=== PATIENT | male | born 1975 | race African-American/Black ===

== ENCOUNTER 2024-03-15 03:51 | Emergency (ER) | payer BC, SELFPAY ==
[2024-03-15] VITALS (21 sets, daily range): BP systolic 149–188; BP diastolic 88–118; PULSE 91–117; RESP 20–22; TEMP 36.9–37.1; O2SAT 91–100; BMI 55.9
--- NOTE | 2024-03-15 04:07 | EKG_ITS ---
[address] [address] Test Date: 2024-03-15 Pat Name: Andrés Capellan Department: Room: Gender: Male [employer] Steam: NOA CRUZ : 1975 Requested By: Order Number: [id number] Reading MD: Harish Leos MD Measurements Intervals [place] Rate: 106 P: 63 RI: 168 QRS: 23 QRSD: 108 T: -46 QT: 358 QTc: 475 Interpretive Statements Sinus tachycardia Incomplete left bundle branch block Left ventricular hypertrophy with repolarization abnormality ( [place] product ) NO PRIOR TRACING Electronically Signed On 03-15-2024 7:42:38 PST by Harish Leos MD
--- NOTE | 2024-03-15 04:08 | DI.RAD.S_ITS ---
PROCEDURE: XR CHEST 1V INDICATIONS: chest pain TECHNIQUE: One view of the chest was acquired. COMPARISON: None. FINDINGS: Surgical changes and devices: None. Lungs and pleura: Mild hazy airspace opacities. Mediastinum: Mediastinal contours appear normal. Heart size is normal. Bones and chest wall: No suspicious bony lesions. Overlying soft tissues appear unremarkable. IMPRESSION: Mild hazy airspace opacities, could represent atelectasis or viral pneumonia. Agree with preliminary report. Dictated by: Rehan May M.D. on 03/15/2024 at 8:31 Approved by: Rehan May M.D. on 03/15/2024 at 8:31
--- NOTE | 2024-03-15 04:09 | ED.SOB ---
HPI - SOB/Dyspnea General Chief Complaint: Shortness of Breath/Dyspnea Stated Complaint: SOB Time Seen by Provider: 03/15/24 03:56 Source: patient Mode of arrival: Ambulatory Limitations: no limitations History of Present Illness HPI Narrative: 48-year-old male with history hypertension and congestive heart failure, working [facility] [employer] away from his home state of [place], had congestive heart failure admission January 2024 in [facility], complains of 2 days duration cough productive of clear sputum, increasing shortness of breath, had not taken his regular medications yesterday nor this morning. Denies sensation fevers chills. Denies chest pain except with coughing. Has swelling to ankles that is about the same. He takes numerous medications for his congestive heart failure and for his blood pressure, but has not taken his medications morning, nor yesterday. Related Data Previous Rx's Medication Instructions Recorded albuterol sulfate 90 mcg/actuation 2 puff inhalation Q6H PRN 03/15/24 aerosol inhaler shortness of breath or wheezing #8.5 grams amoxicillin 875 mg tablet 875 mg PO BID dental infection 10 03/15/24 days #20 tabs doxycycline hyclate 100 mg capsule 100 mg PO BID #20 caps 03/15/24 Allergies Allergy/AdvReac Type Severity Reaction Status Date / Time No Known Drug Allergies Allergy Verified 03/15/24 04:00 Review of Systems Review of Systems Narrative: See HPI Patient History Social History Smoking Status: Never smoker Smoking Status: Never smoker Exam Narrative Exam Narrative: GENERAL: Well-developed patient, in mild distress. HEAD: Atraumatic. Normocephalic. EYES: Pupils equal round and reactive. Extraocular motions intact. No scleral icterus. No injection or drainage. ENT: Nose without bleeding, purulent drainage. Throat without erythema, tonsillar hypertrophy or exudate. Airway patent. NECK: Trachea midline. Non tender CARDIOVASCULAR: Regular rate and rhythm without murmurs, gallops, or rubs. RESPIRATORY: Clear to auscultation. Breath sounds equal bilaterally. No wheezes, rales, or rhonchi. GASTROINTESTINAL: Abdomen soft, non-tender, nondistended. EXTREMITIES: No edema or joint tenderness. BACK: Nontender without deformity or crepitance. No flank tenderness. NEURO: AOx3. Motor functions grossly nonfocal SKIN: No rash or erythema of visible areas Initial Vital Signs Initial Vital Signs: Vital Signs Pulse Rate 109 H 03/15/24 03:58 Blood Pressure 187/118 H 03/15/24 03:58 Pulse Oximetry 95 03/15/24 03:58 Course Orders Ordered: ED Orders 03/15/24 03:59 EKG-12 Lead Stat 03/15/24 04:07 Covid-19 + FLU A/B + RSV - PCR Stat 03/15/24 04:08 XR chest 1V Stat 03/15/24 04:15 Complete Blood Count AUTO DIFF Stat Comprehensive Metabolic Panel Stat Lipase Stat NT-proBNP (BNP-Adult 18+) Stat Troponin & CK Cardiac Panel Stat 03/15/24 06:30 Blood Culture Stat Troponin I Stat Discontinued Medications Albuterol (Albuterol 2.5 Mg/3 Ml Neb (Adult)) 2.5 mg INH NOW ONE Stop: 03/15/24 04:11 Last Admin: 03/15/24 04:19 Dose: 2.5 mg Albuterol/Ipratropium (Albuterol/Ipratropium 3 Ml Ampul) 3 ml INH NOW ONE Stop: 03/15/24 07:04 Doxycycline Hyclate (Doxycycline Hyclate 100 Mg Tablet) 100 mg PO NOW ONE Stop: 03/15/24 04:57 Last Admin: 03/15/24 05:32 Dose: 100 mg Furosemide (Furosemide 40 Mg/4 Ml Vial) 40 mg IV NOW ONE Stop: 03/15/24 04:14 Last Admin: 03/15/24 04:37 Dose: 40 mg Hydralazine HCl (Hydralazine 25 Mg Tablet) 50 mg PO NOW ONE Stop: 03/15/24 04:09 Last Admin: 03/15/24 04:19 Dose: 50 mg Hydralazine HCl (Hydralazine 20 Mg/Ml Vial) 5 mg IV NOW ONE Stop: 03/15/24 04:25 Last Admin: 03/15/24 04:35 Dose: 5 mg Hydralazine HCl (Hydralazine 20 Mg/Ml Vial) 10 mg IV NOW ONE Stop: 03/15/24 05:04 Last Admin: 03/15/24 05:22 Dose: Not Given Sodium Chloride (Normal Saline 0.9%) 1,000 mls @ 150 mls/hr IV CONT RONNELL Ceftriaxone Sodium 1,000 mg/ (Sodium Chloride) 100 mls @ 200 mls/hr IV NOW ONE Stop: 03/15/24 04:57 Last Infusion: 03/15/24 06:08 Dose: Infused Losartan Potassium (Losartan 50 Mg Tablet) 50 mg PO NOW ONE Stop: 03/15/24 04:09 Last Admin: 03/15/24 04:21 Dose: 50 mg Nitroglycerin (Nitroglycerin 0.4 Mg Sl Tab) 0.4 mg SL NOW ONE Stop: 03/15/24 04:13 Last Admin: 03/15/24 04:34 Dose: 0.4 mg Spironolactone (Spironolactone 12.5 Mg Tablet) 12.5 mg PO NOW ONE Stop: 03/15/24 04:26 Last Admin: 03/15/24 04:39 Dose: Not Given Vital Signs Vital signs: Vital Signs - 8 hr 03/15/24 03:58 03/15/24 03:58 03/15/24 04:00 Temperature Pulse Rate 109 H 106 H Respiratory Rate Blood Pressure 187/118 H Pulse Oximetry 95 98 Oxygen Delivery Method 03/15/24 04:01 03/15/24 04:16 03/15/24 04:19 Temperature 98.5 F Pulse Rate 107 H 104 H 106 H Respiratory Rate 22 Blood Pressure 187/118 H 182/103 H Pulse Oximetry 95 94 Oxygen Delivery Method Room Air 03/15/24 04:24 03/15/24 04:24 03/15/24 04:30 Temperature Pulse Rate 104 H 105 H Respiratory Rate Blood Pressure 182/103 H Pulse Oximetry 100 93 Oxygen Delivery Method Room Air 03/15/24 04:30 03/15/24 04:34 03/15/24 04:38 Temperature Pulse Rate 103 H Respiratory Rate Blood Pressure 181/110 H 181/110 H 182/107 H Pulse Oximetry Oxygen Delivery Method 03/15/24 04:38 03/15/24 05:00 03/15/24 05:00 Temperature Pulse Rate 104 H 117 H Respiratory Rate Blood Pressure 188/106 H Pulse Oximetry 94 92 Oxygen Delivery Method 03/15/24 05:11 03/15/24 05:11 03/15/24 05:12 Temperature Pulse Rate 104 H Respiratory Rate Blood Pressure 150/88 H 150/88 H Pulse Oximetry 92 Oxygen Delivery Method 03/15/24 05:22 03/15/24 05:31 03/15/24 05:32 Temperature Pulse Rate 106 H Respiratory Rate Blood Pressure 150/88 H 172/96 H Pulse Oximetry Oxygen Delivery Method 03/15/24 05:32 03/15/24 06:00 03/15/24 06:00 Temperature Pulse Rate 108 H 91 H Respiratory Rate Blood Pressure 171/93 H Pulse Oximetry 100 93 Oxygen Delivery Method 03/15/24 06:30 03/15/24 06:44 03/15/24 06:44 Temperature Pulse Rate 99 H 100 H Respiratory Rate Blood Pressure 149/92 H Pulse Oximetry 91 95 Oxygen Delivery Method Room Air 03/15/24 07:00 03/15/24 07:01 03/15/24 07:01 Temperature Pulse Rate 102 H 105 H Respiratory Rate Blood Pressure 154/92 H Pulse Oximetry 99 98 Oxygen Delivery Method MDM - SOB/Dyspnea Lab Data Attestation: I reviewed the patient's lab results. Lab results narrative: White blood cell count 8300, hemoglobin 12.5, platelets adequate. BUN 29 with creatinine 2.06 noted. Glucose 118. Electrolytes unremarkable. CPK 1106 noted. Troponin 0.021. COVID negative, influenza A negative, influenza B negative, RSV he was positive however. BNP 636 03/15/24 04:15 03/15/24 04:15 Labs: Lab Results 03/15/24 03/15/24 03/15/24 Range/Units 04:07 04:15 04:15 WBC 8.3 (4.5-11.0) X10^3/uL RBC 5.46 (4.5-5.9) X10^6/uL Hgb 14.5 (13.5-17.5) g/dL Hct 44.0 (41-53) % MCV 80.6 (80-100) fL MCH 26.6 (26-34) PG MCHC 33.0 (30-36) % RDW 17.5 H (11.6-14.8) % Plt Count 321 (150-400) X10^3/uL Neut % (Auto) 65.8 (50-75) % Lymph % (Auto) 10.5 L (25-40) % Parke % (Auto) 16.9 H (3-14) % Eos % (Auto) 6.3 H (2-4) % Baso % (Auto) 0.5 (0-2) % Neut # (Auto) 5500 (4047-4894) /uL Lymph # (Auto) 900 L (1293-7718) /uL Parke # (Auto) 1400 H (0-900) /uL Eos # (Auto) 500 H (0-450) /uL Baso # (Auto) 0 (0-100) /uL Sodium 140 (137-145) mmol/L Potassium 4.2 (3.4-5.1) mmol/L Chloride 105 (98-107) mmol/L Carbon Dioxide 28 (22-32) mmol/L BUN 29 H (9-20) mg/dL Creatinine 2.06 H (0.66-1.25) mg/dL Estimated GFR 39 L (>60) mL/min BUN/Creatinine Ratio 14.1 (6-22) Glucose 118 H (70-100) mg/dL Calcium 8.6 (8.4-10.2) mg/dL Total Bilirubin 0.9 (0.2-1.3) mg/dL AST 67 H (17-59) IU/L ALT 40 (<50) IU/L Alkaline Phosphatase 76 (38-126) U/L Total Creatine Kinase 1106 H (55-170) U/L Troponin I 0.021 Cancelled (0.01-0.034) ng/mL NT-Pro-B Natriuret Pep 636 H (<125) pg/mL Total Protein 8.6 H (6.3-8.2) g/dL Albumin 4.0 (3.5-5.0) g/dL Globulin 4.6 H (1.7-4.1) g/dL Albumin/Globulin Ratio 0.9 L (1.0-2.8) Lipase 89 (23-300) U/L SARS-CoV-2 (PCR) Negative (Negative) Influenza A (RT-PCR) Flu a negative (NEGATIVE) Influenza B (RT-PCR) Flu b negative (NEGATIVE) RSV (PCR) Positive A (Negative) 03/15/24 Range/Units 06:30 WBC (4.5-11.0) X10^3/uL RBC (4.5-5.9) X10^6/uL Hgb (13.5-17.5) g/dL Hct (41-53) % MCV (80-100) fL MCH (26-34) PG MCHC (30-36) % RDW (11.6-14.8) % Plt Count (150-400) X10^3/uL Neut % (Auto) (50-75) % Lymph % (Auto) (25-40) % Parke % (Auto) (3-14) % Eos % (Auto) (2-4) % Baso % (Auto) (0-2) % Neut # (Auto) (7644-0786) /uL Lymph # (Auto) (1382-2108) /uL Parke # (Auto) (0-900) /uL Eos # (Auto) (0-450) /uL Baso # (Auto) (0-100) /uL Sodium (137-145) mmol/L Potassium (3.4-5.1) mmol/L Chloride (98-107) mmol/L Carbon Dioxide (22-32) mmol/L BUN (9-20) mg/dL Creatinine (0.66-1.25) mg/dL Estimated GFR (>60) mL/min BUN/Creatinine Ratio (6-22) Glucose (70-100) mg/dL Calcium (8.4-10.2) mg/dL Total Bilirubin (0.2-1.3) mg/dL AST (17-59) IU/L ALT (<50) IU/L Alkaline Phosphatase (38-126) U/L Total Creatine Kinase (55-170) U/L Troponin I 0.019 (0.01-0.034) ng/mL NT-Pro-B Natriuret Pep (<125) pg/mL Total Protein (6.3-8.2) g/dL Albumin (3.5-5.0) g/dL Globulin (1.7-4.1) g/dL Albumin/Globulin Ratio (1.0-2.8) Lipase (23-300) U/L SARS-CoV-2 (PCR) (Negative) Influenza A (RT-PCR) (NEGATIVE) Influenza B (RT-PCR) (NEGATIVE) RSV (PCR) (Negative) ECG Data Attestation: I personally reviewed and interpreted this ECG as follows: Interpretation: Sinus tachycardia with rate 106, left bundle branch block pattern noted. GA 168, QRS 108, QTC 475. None for comparison in record, await outside records if any can be obtained. MDM Narrative Medical decision making narrative: 48-year-old male with history of congestive heart failure, hypertension, on numerous medications, had not taken his medications since yesterday, now with 2 days duration cough productive of clear sputum, feeling more short of breath. Speaks in full sentences, room-air saturation adequate, lungs clear, some peripheral edema ankles. Labs pending. EKG with left bundle branch block, labs pending. IV Lasix, IV hydralazine. Will give sublingual nitroglycerin dose, oral isosorbide his usual morning dose, oral losartan his usual morning dose, oral hydralazine is usually morning dose. Chest x-ray single view. Impressions: ?Multifocal bilateral pulmonary infiltrates. Follow up chest radiograph after appropriate treatment to document resolution.? Teleradiology report Blood cultures requested, IV ceftriaxone, oral doxycycline. Prescription sent for further antibiotics to his pharmacy, oral amoxicillin in oral doxycycline, for 10 days courses. Blood pressure improving, 150/88. Creatinine 2.0 noted, none for comparison, with GFR 39, we will attempt to obtain old records if any can be found. None in [employer], patient is visiting [facility] from [place], working in the [employer] [employer]. He was admitted for congestive heart failure exacerbation January 2024, [facility], we will attempt to obtain those records. No records received from [facility]. Interval troponin negative. Patient significantly improved. We will discharge patient on further antibiotics amoxicillin and doxycycline, sent to his pharmacy. Encouraged to take his regular medications as prescribed and not miss any doses. Follow up with his [facility] provider as planned as recommended after his [facility] hospitalization. Critical Care Time Critical Care Time Critical Care Time: Yes Total Critical Care Time: 35 Attestation: The high probability of a clinically significant, sudden or life threatening deterioration of the [cardiopulmonary] system(s) required my full and direct attention, intervention and personal management. The aggregate critical care time was [35] minutes. Multiple medications administered parenteral and oral routes to bring down blood pressure, and treat his congestive heart failure, along with antibiotics to treat identified pneumonia, with improvement enough in respiratory status and vital signs and blood pressure eventually to be discharged. This time is in addition to time spent performing reported procedures but includes the following: [x] Data Review and interpretation [x] Patient assessment and monitoring of vital signs [x] Documentation [x] Medication orders and management Discharge Plan Departure Patient Disposition: Home Clinical Impression: Congestive heart failure, Dyspnea, Hypertension, Respiratory syncytial virus (RSV) infection, Renal insufficiency Activity Restrictions/Additional Instructions: Cough and shortness of breath, chest x-ray shows bilateral patchy pneumonia like changes. Initial IV antibiotics and oral antibiotics initiated. Further antibiotics sent to your pharmacy. Blood pressure initially quite elevated, you had not been taking her blood pressure medicines, IV hydralazine given, along with nitroglycerin, continue taking your oral hydralazine and losartan and carvedilol and diuretic medications. Use inhaler to help keep lungs open and help control cough symptoms, albuterol inhaler 2 puffs 4 times daily for the next week and then as needed. Take your blood pressure and heart failure related medications as directed. Recheck symptoms early next week with your regular doctor in [place]. Return to this/nearest emergency department for any change worsening symptoms or any concerns prior Prescriptions: New amoxicillin 875 mg tablet 875 mg PO BID 10 Days Qty: 20 0RF doxycycline hyclate 100 mg capsule 100 mg PO BID Qty: 20 0RF albuterol sulfate 90 mcg/actuation HFA aerosol inhaler 2 puff inhalation Q6H PRN (Reason: shortness of breath or wheezing) Qty: 8.5 0RF Stand Alone Forms: Patient Portal/API/Survey
[2024-03-15] MEDS: HYDRALAZINE 25 MG TABLET 50 MG PO (04:19)
[2024-03-15] MEDS: ALBUTEROL 2.5 MG/3 ML NEB (ADULT) INH (04:19)
[2024-03-15] MEDS: LOSARTAN 50 MG TABLET PO (04:21)
--- NOTE | 2024-03-15 04:25 | PC.NURSE ---
Addendum entered by Shana Reilly R.N. 03/15/24 04:30: Pt took 12.5mg spironolactone of his own medications. Original Note: Provider okayed for patient to take his own isosorbide 10mg
[2024-03-15 04:30] LABS: Add Manual Diff / Slide Review NO; Basophils Absolute Auto 0 /uL (0-100); Basophils Percent Auto 0.5 % (0-2); Eosinophils Absolute Auto 500 /uL (0-450); Eosinophils Percent Auto 6.3 % (2-4); Hemoglobin 14.5 g/dL (13.5-17.5); Lymphocytes Absolute Auto 900 /uL (1100-4500); Lymphocytes Percent Auto 10.5 % (25-40); Mean Corpuscular Hemoglobin 26.6 PG (26-34); Mean Corpuscular Volume 80.6 fL (80-100); Monocytes Absolute Auto 1400 /uL (0-900); Monocytes Percent Auto 16.9 % (3-14); Neutrophils Absolute Auto 5500 /uL (1500-7000); Neutrophils Percent Auto 65.8 % (50-75); Platelet Count 321 X10^3/uL (150-400); Red Blood Cell Count 5.46 X10^6/uL (4.5-5.9); Red Cell Distribution Width 17.5 % (11.6-14.8); White Blood Cell Count 8.3 X10^3/uL (4.5-11.0)
[2024-03-15] MEDS: NITROGLYCERIN 0.4 MG SL TAB SL (04:34)
[2024-03-15] MEDS: HYDRALAZINE 20 MG/ML VIAL 5 MG IV (04:35)
[2024-03-15] MEDS: FUROSEMIDE 40 MG/4 ML VIAL IV (04:37)
[2024-03-15 04:40] LABS: Alanine Aminotransferase 40 IU/L (<50); Albumin Globulin Ratio 0.9 (1.0-2.8); Alkaline Phosphatase 76 U/L (38-126); Aspartate Aminotransferase 67 IU/L (17-59); BUN Creatinine Ratio 14.1 (6-22); Bilirubin Total 0.9 mg/dL (0.2-1.3); Blood Urea Nitrogen 29 mg/dL (9-20); Calcium 8.6 mg/dL (8.4-10.2); Carbon Dioxide 28 mmol/L (22-32); Chloride 105 mmol/L (98-107); Creatine Kinase 1106 U/L (55-170); Estimated Glomerular Filt Rate 39 mL/min (>60); Globulin 4.6 g/dL (1.7-4.1); Glucose 118 mg/dL (70-100); Lipase 89 U/L (23-300); Sodium 140 mmol/L (137-145); Total Protein 8.6 g/dL (6.3-8.2)
[2024-03-15 04:43] LABS: HEMOLYSIS 128 (0-50)
[2024-03-15 04:47] LABS: Potassium 4.2 mmol/L (3.4-5.1)
[2024-03-15 04:52] LABS: Troponin I 0.021 ng/mL (0.01-0.034)
[2024-03-15 05:02] LABS: Influenza A - CEPHEID Flu A NEGATIVE (NEGATIVE); Influenza B - CEPHEID Flu B NEGATIVE (NEGATIVE); Respiratory Syncytial Virus POSITIVE (Negative)
[2024-03-15 05:15] LABS: COVID-19 CEPHEID 4-PLEX PCR Negative (Negative)
[2024-03-15 05:18] LABS: NT-proBNP (BNP-Adult 18+) 636 pg/mL (<125)
[2024-03-15] MEDS: DOXYCYCLINE HYCLATE 100 MG TABLET PO (05:32)
[2024-03-15] MEDS: cefTRIAXone 1,000 MG in SODIUM CHLORIDE 0.9% 100 ML 200 MG IV (05:32)
[2024-03-15 07:13] LABS: Troponin I 0.019 ng/mL (0.01-0.034)
[2024-03-15] MEDS: ALBUTEROL/IPRATROPIUM 3 ML AMPUL INH (07:38)
--- NOTE | 2024-03-15 07:56 | PC.NURSE ---
bowel sounds present
== END 2024-03-15 07:58 | disposition home or self-care (01) ==
PROVIDERS: Emergency Provider Emergency Medicine
DX: I11.0 Hypertensive heart disease with heart failure (principal); I50.9 Heart failure, unspecified; B97.4 Respiratory syncytial virus as the cause of diseases classified elsewhere; N28.9 Disorder of kidney and ureter, unspecified; I44.7 Left bundle-branch block, unspecified
CPT/HCPCS: 0241U; 36415; 71045; 80053; 82550; 83690; 83880; 84484; 85025; 87040; 93005; 94640; 96365; 96375; 99284; 99285; J0360; J0696; J1940; J7613